=== PATIENT | male | born 1990 | race Caucasian/White ===

== ENCOUNTER 2024-09-04 06:21 | Day surgery (SDC) | payer SELFPAY, OTHER ==
[2024-09-04] VITALS (8 sets, daily range): BP systolic 87–117; BP diastolic 62–71; PULSE 54–70; RESP 15–16; TEMP 36.4–36.7; O2SAT 93–99; BMI 30.1
--- OUTSIDE RECORDS SUMMARY | 2024-09-04 06:28 | XMS RPT_ITS | CCD ---
Author Organization [facility] Care Team Providers Care Thinner Sprayer Name Role Phone Dr. Chino Butts DO Primary Care Provider Dr. Chino Butts DO Referring Provider [phone] Dante MCMANUS, Dr. Eric Baumann Attending Provider Chino Butts Referring Unavailable Chino Butts Primary Care Unavailable Eric Howell Attending Unavailable Chino Butts Primary Care Unavailable Eric Howell Attending Unavailable Problems Problem Classification Problem Date Documented Da te Episodic/Chronic Gastrointestinal hemorrhage (3 sources) Hematochezia; Translations: [Melena] Onset: 08-17-2024 08-17-2024 Episodic Hemorrhoids (1 source) Hemorrhoids; Translations: [Unspecified hemorrhoids] 08-17-2024 Episodic Results Test Name Value Interpretation Reference Range Facil ity Surgery Visit Reporton 08-17 Surgery Visit Report [facility] [address] [place], [place] [address] OFFICE VISIT Date of Service: 08/17/24 MR#: [id number] Acct: [id number] Name: DORON DAY Rep #: [id number] : 1990 Provider: Dr. Eric johansen MD Age/Sex: 33/M Location: [facility] Status: Signed Intake Vital Signs 08/17/24 08:01 Height 5 ft 8 in Weight: 203 lb 4 oz BMI 30.9 BP 119/80 Blood Pressure Location Rt brachial Position Sitting Respiration 18 Pulse 73 Pulse Source Monitor Temp 97.2 F L Temp Source Temporal Pulse Oximetry (%) 99 Oxygen Delivery Method room air Intake Visit Reasons: SELF REFERRED BLOOD IN STOOL Chief Complaint: self referred blood in stool Is patient in pain?: No Allergies No Known Allergies Allergy (Verified 08/17/24 08:02) Medications ???Medication ???Instructions ???Recorded ???Confirmed ???Type No Known/Unobtainable [No Known 03/30/16 08/17/24 History Home Medications] [facility] Medical History (Updated 08/17/24 @ 08:01 by Jenna Angulo LPN) Herbert blood in stool Hemorrhoids Social History (Updated 08/17/24 @ 08:01 by Jenna Angulo LPN) Smoking Status: Never smoker alcohol intake: never substance use type: does not use HPI HPI HPI: The patient is a 33-year-old male who is being seen today for recent episodes of blood per rectum. He states that this blood is typically more dark in color. He has not noticed any significant association other than he has noticed some blood after drinking a lot of energy drinks. No family history of colon polyps or colon cancers. He denies any rectal pain. He has never had a colonoscopy. He ROS General General: Yes weight change and fatigue; No appetite, colon cancer, breast cancer or weakness HEENT HEENT: No difficulty swallowing, eye injury, eye surgery, swollen glands or hoarseness Endo Endocrine: No thyroid disease, diabetes mellitus, thyroid cancer, Hair loss, heat intolerance or cold intolerance Skin Skin: No rash or changing moles Musc Musculoskeletal: No back problems, arthritis, rheumatoid arthritis, gout or joint pain Cardio Cardiovascular: No murmur, pacemaker, heart disease, atrial fibrillation, high blood pressure, heart attack, heart stent, palpitations, shortness of breath with exertion or chest pain Psych Psychiatric: No depression, anxiety or hearing voices Resp Respiratory: No shortness of breath, No sleep apnea, No cough, No COPD, No asthma, No emphysema and No wheezing Gastro Gastrointestinal: No abdominal pain, No nausea or vomiting, No diarrhea, No constipation, Yes blood in stool, No acid reflux, Yes hemorrhoids, No ulcers, No gallbladder problem and No black,tarry stools Tacho Hematologic: No blood thinners, No blood disorders, No bleeding, No anemia and No blood clots Neuro Neurologic: No numbness, No tingling and No weakness Exam Const General: cooperative, healthy appearing and comfortable [facility] Head: normal to inspection Eyes General: appearance normal, both eyes and all related structures Neck Neck: normal visual inspection Resp Effort Inspection: normal respiratory effort Assessment and Plan Assessment and Plan (1) Herbert blood in stool: Status: Acute Plan: The patient is a 33-year-old male with recent episodes of herbert blood in his stool. He was obviously concerned about this. He presents today for further evaluation. I have recommended that we begin with colonoscopy to rule out masses, polyps etc. I suspect this statistically is more likely to be hemorrhoids. For this reason I recommend that he keep himself hydrated and try to increase the fiber in his diet. We also discussed fiber supplement such as Metamucil or Benefiber. I even suggested MiraLAX to help keep his stool soft. We will schedule him for colonoscopy to best evaluate the cause for his blood per rectum. Treatment will be based on scope findings. He is agreeable to this plan. Coding Level of Care Code Off vis,new,level 4 Diagnoses Herbert blood in stool K92.1 08/17/24 0817 Date [facility] Signature: Date (if applicable) CC: Normal [facility] Vital Signs Date Time Vital Sign Value Performing Clinician Gavini josh 08-17-2024 08:01-0400 Body height 172.[address] Chino Butts DO Work Phone: [facility] 08-17-2024 08:01-0400 Body mass index (BMI) [Ratio] 30.9 kg/m2 Dr. Chino Butts DO Work Phone: [facility] 08-17-2024 08:01-0400 Body temperature 97.2 [degF] Dr. Chino Butts DO Work Phone: [facility] 08-17-2024 08:01-0400 Body weight 92.[address] Chino Butts DO Work Phone: [facility] 08-17-2024 08:01-0400 Diastolic blood pressure 80 mm[Hg] Dr. Chino Butts DO Work Phone: [facility] 08-17-2024 08:01-0400 Heart rate 73 /min Dr. Chino Butts DO Work Phone: [facility] 08-17-2024 08:01-0400 Respiratory rate 18 /min Dr. Chino Butts DO Work Phone: [facility] 08-17-2024 08:01-0400 SaO2% (BldA) [Mass fraction] 99 % Dr. Chino Butts DO Work Phone: [facility] 08-17-2024 08:01-0400 Systolic blood pressure 119 mm[Hg] Dr. Chino Butts DO Work Phone: [facility] Encounters Encounter Date Encounter Type Care Provider Facility Start: 09-04-2024 ambulatory Chino Butts Facility:[facility] Start: 08-17-2024 End: 08-17-[address] Eric Howell MD -[facility] Work Phone: Start: 08-17-2024 End: 08-17-[address] Chino Butts DO Work Phone: -[facility] Payers Date Payer Category Payer Self-pay 2024 Unknown [id number] Unknown [id number] Unknown [id number] Social History Date Type Detail Facility Start: [facility] Start: 1990 Sex Assigned At Male [facility] Progress note 08-17-2024 Note Date & Type Note Facility 08-17-2024 Progress note [facility] Progress note 08-17-2024 Note Date & Type Note Facility 08-17-2024 Progress note Note Date/Time August 17, 2024 8:17 am [facility] [address] [place] [address] OFFICE VISIT Date of Service: 08/17/24 MR#: [id number] Acct: [id number] Name: DORON DAY Rep #: [id number] : 1990 Provider: Dr. Colton Howell MD Age/Sex: 33/M Location: [facility] Status: Signed Intake Vital Signs 08/17/24 08:01 Height 5 ft 8 in Weight: 203 lb 4 oz BMI 30.9 BP 119/80 Blood Pressure Location Rt brachial Position Sitting Respiration 18 Pulse 73 Pulse Source Monitor Temp 97.2 F L Temp Source Temporal Pulse Oximetry (%) 99 Oxygen Delivery Method room air Intake Visit Reasons: SELF REFERRED BLOOD IN STOOL Chief Complaint: self referred blood in stool Is patient in pain?: No Allergies No Known Allergies Allergy (Verified 08/17/24 08:02) Medications ?Medication ?Instructions ?Recorded ?Confirmed ?Type No Known/Unobtainable [No Known 7 08/17/24 History Home Medications] PFSH Medical History (Updated 08/17/24 @ 08:01 by Jenna Angulo LPN) Herbert blood in stool Hemorrhoids Social History (Updated 08/17/24 @ 08:01 by Jenna Angulo LPN) Smoking Status: Never smoker alcohol intake: never substance use type: does not use HPI HPI HPI: The patient is a 33-year-old male who is being seen today for recent episodes ofblood per rectum. He states that this blood is typically more dark in color. He has not noticed any significant association other than he has noticed some blood after drinking a lot of energy drinks. No family history of colon polyps or colon cancers. He denies any rectal pain. He has never had a colonoscopy. He ROS General General: Yes weight change and fatigue; No appetite, colon cancer, breast cancer or weakness HEENT HEENT: No difficulty swallowing, eye injury, eye surgery, swollen glands or hoarseness Endo Endocrine: No thyroid disease, diabetes mellitus, thyroid cancer, Hair loss, heat intolerance or cold intolerance Skin Skin: No rash or changing moles Musc Musculoskeletal: No back problems, arthritis, rheumatoid arthritis, gout or joint pain Cardio Cardiovascular: No murmur, pacemaker, heart disease, atrial fibrillation, high blood pressure, heart attack, heart stent, palpitations, shortness of breath with exertion or chest pain Psych Psychiatric: No depression, anxiety or hearing voices Resp Respiratory: No shortness of breath, No sleep apnea, No cough, No COPD, No asthma, No emphysema and No wheezing Gastro Gastrointestinal: No abdominal pain, No nausea or vomiting, No diarrhea, No constipation, Yes blood in stool, No acid reflux, Yes hemorrhoids, No ulcers, Nogallbladder problem and No black,tarry stools Tacho Hematologic: No blood thinners, No blood disorders, No bleeding, No anemia and No blood clots Neuro Neurologic: No numbness, No tingling and No weakness Exam Const General: cooperative, healthy appearing and comfortable HENAL Head: normal to inspection Eyes General: appearance normal, both eyes and all related structures Neck Neck: normal visual inspection Resp Effort & Inspection: normal respiratory effort Assessment and Plan Assessment and Plan (1) Herbert blood in stool: Status: Acute Plan: The patient is a 33-year-old male with recent episodes of herbert blood in his stool. He was obviously concerned about this. He presents today for further evaluation. I have recommended that we begin with colonoscopy to rule out masses, polyps etc. I suspect this statistically is more likely to be hemorrhoids. For this reason I recommend that he keep himself hydrated and try to increase the fiber in his diet. We also discussed fiber supplement such as Metamucil or Benefiber. I even suggested MiraLAX to help keep his stool soft. We will schedule him for colonoscopy to best evaluate the cause for his blood per rectum. Treatment will be based on scope findings. He is agreeable to thisplan. Coding Level of Care Code Off vis,new,level 4 Diagnoses Herbert blood in stool K92.1 08/17/24 0817 <Electronically signed by Eric alexander MD> Date _ Eric Howell MD Cosigner Signature: Date (if applicable) CC: ~ [facility] Work Phone: Evaluation note Note Date & Type Note Facility Evaluation note Diagnosis Onset Date Resolution Herbert blood in stool acute August 17, 2024 7:55am [facility] [employer] [facility] Work Phone: Reason for referral (narrative) Note Date & Type Note Facility Reason for referral (narrative) No reason for referral information available [facility] Work Phone: Chief Complaint and Reason for Visit Chief Complaint Admit Date SELF REFERRED BLOOD IN STOOL August 17, 2024 7:55am Reason for Visit Admit Date Herbert blood in stool August 17, 2024 7:5 5am Summary Purpose Family History No Family History Records Found Advance Directives No Advanced Directives Records Found Additional Source Comments Care Teams (unrecognized sec tion and content) Team Status: Active Member Role/Relationship Status Dates Dr. Chino Butts DO Primary Care Provider Active Team Status: Inactive Member Role/Relationship Status Dates Dr. Chino Butts DO Primary Care Provider Active Start: August 17, 2024 End: August 17, 2024 Dr. Chino Butts DO Referring Provider Active S tart: August 17, 2024 End: August 17, 2024 Dr. Eric Howell MD Attending Provider Active Start: August 17, 2024 End: August 17, 2024 Goals (unrecognized section and content) Goals may be documented in a n alternate section (unrecognized sect ion and content) No Status Records Found INFORMATION SOURCE (unrecogn ized section and content) DATE CREATED AUTHOR 09/04/2024 [facility] FOR RECORDS PERTAINING TO PATIENTS WHO ARE OR HAVE BEEN ENROLLED IN A CHEMICAL DEPENDENCY/SUBSTANCEABUSE PROGRAM, SOME INFORMATION MAY BE OMITTED. This clinical summary was aggregated from multiple sources. Caution should be exercised in using it in the provision of clinical care. This summary normalizes information from multiple sources, and as a consequence, information in this document may materially change the coding, format and clinical context of patient data. In addition, data may be omitted in some cases. CLINICAL DECISIONS SHOULD BE BASED ON THE PRIMARY CLINICAL RECORDS. [facility] [employer] [facility]. provides no warranty or guarantee of the accuracy or completeness of information in this document.
[2024-09-04] MEDS: Lactated Ringers 1,000 ML 15 ML IV (06:54)
--- NOTE | 2024-09-04 07:14 | PCM.PRE.AN2 ---
ASA Classification* ASA Classification ASA Classification: 1 Assessment & Plan Anesthesia* Anesthesia Assessment Anesthesia Assessment: Discussed sedation and/or anesthesia options, risks, benefits, and alternatives with patient/parents/legal guardian/POA. Questions invited. The patient/parents/legal guardian/POA seems to understand and agrees to proceed with anesthesia plan. Reviewed the physical assessment, medical history, allergy history and patient home medications list prior to surgery/procedure/anesthetic and documented any changes. Performed airway and anesthesia risk assessments. Anesthesia Type Anesthesia Type: MAC History Source History Obtained from:: Patient and Chart Anesthesia Focused Assessment* Temperature: 98.1 F Pulse Rate: 70 Blood Pressure: 117/69 Respiratory Rate: 15 Pulse Ox: 99 Oxygen Delivery Method: Room Air Airway Assessment Mouth opens: >3 cm Mallampati Score: II Teeth Condition: Intact Neck Range of motion (ROM): Full ROM Labs Anesthesia Preop lab: CBC CHEMISTRY COAG Pre-Assessment Diagnosis/Proposed Procedure Planned Operative Procedure(s): COLONOSCOPY Anesthesia History Anesthesia History - paper grader: Anesthesia History - paper grader Hx Hospitalization No 08/31/24 12:01 Any Problems With Anesthesia No 08/31/24 12:01 Cholinesterase deficiency No 08/31/24 12:01 You/Your Family Experience No 08/31/24 12:01 fever (hyperthermia) with Relationship Recent Exposure to Contagious Yes 09/04/24 06:45 Disease Does patient have nerve No 08/31/24 12:01 stimulator Patient instructed to have device shut off --Does patient have Pacemaker No 09/04/24 06:47 or ICD? When Was Last Pacemaker Check QUESTION #4 FULL TEXT: You/Your Family Experience fever (hyperthermia) with Anesthesia Last Oral Intake Last Oral intake: Last Oral Intake NPO since 22:30 09/04/24 06:47 Meds taken in AM with sips of No 09/04/24 06:47 water? Meds patient instructed to take am of surgery PONV PONV - paper grader: PONV - paper grader Female No 08/31/24 12:01 HX of Motion Sickness No 08/31/24 12:01 HX of N/V After Surgery No 08/31/24 12:01 Non-Smoker No 08/31/24 12:01 Duration of Surgery greater No 08/31/24 12:01 than 60 minutes Number of Risk Factors PONV Score Height & Weight Height & Weight: Anesthesia: Height & Weight Height 5 ft 8 in 09/04/24 06:47 Weight: 89.811 kg 09/04/24 06:47 Body Mass Index (BMI) 30.1 09/04/24 06:47 Respiratory Assessment Respiratory Assessment - paper grader: Respiratory Tract Infection Hx - paper grader Hx Respiratory Tract Infection No 08/31/24 12:01 STOP Sleep Apnea STOP Sleep Apnea - paper grader: STOP Sleep Apnea - paper grader Hx Hypertension No 08/31/24 12:01 Hx Sleep Apnea No 08/31/24 12:01 CPAP BIPAP Do you snore loudly (louder No 08/31/24 12:01 than talking or can be heard Do you often feel tired/ No 08/31/24 12:01 fatigued/ sleepy during daytime? Has anyone observed you stop No 08/31/24 12:01 breathing during sleep? STOP Results Negative 08/31/24 12:01 QUESTION #5 FULL TEXT : Do you snore loudly (louder than talking or can be heard through closed doors)? Tobacco Use History Tobacco Use History - paper grader: Tobacco Use History - paper grader Tobacco Use Smoking Status Current some day smoker 08/31/24 12:01 Hx Tobacco Use Yes 08/31/24 12:01 Years Smoking Packs Smoked per Day Smoking Cessation Date was within the last 15 years Hx Smoking Cessation Date Hx Smoking Cessation Counseling Hematologic Medial History Hematologic Hx - paper grader: Hematologic Medical Hx - magazine keeper Hx of Blood Transfusion No 08/31/24 12:01 Hx of Transfusion in last 3 No 08/31/24 12:01 Months Date of Last Transfusion (if within last 3 months) Ever experience any problems No 08/31/24 12:01 with transfusion(s)? Specify any problems Hx of Preganancy in last 3 N/A 08/31/24 12:01 Months Nurse Filling Out Transfusion [id number] 08/31/24 12:01 & Questions: Date: 08/31/24 08/31/24 12:01 Time: 12:06 08/31/24 12:01 Patient unable to answer at this time (ie. confused, unrespo /Reproduction History /Reproductive History - paper grader: /Reproductive Hx- paper grader Hx Now Gestational Age (in weeks): EDC: Hx Hx Para Hx Section SAB Active Medications Active Medications: Current Medications Generic Name Dose Route Start Last Admin Trade Name David PRN Reason Stop Dose Admin Lactated Ringer's 1,000 mls @ 15 mls/hr 09/04/24 06:45 09/04/24 06:54 IV 15 mls/hr .Q48H CHARLES Administration PFSH Medical History (Updated 08/31/24 @ 12:08 by Chris Burns) Injury of back Smoker Loc blood in stool Hemorrhoids Home Medications ?Medication ?Instructions ?Recorded ?Last Taken ?Type No Known/Unobtainable [No Known 03/30/16 Unknown History Home Medications] Allergy/AdvReac Type Severity Reaction Status Date / Time No Known Allergies Allergy Verified 09/04/24 06:45 Social History (Updated 08/17/24 @ 08:01 by Jenna Angulo LPN) Smoking Status: Current some day smoker tobacco type: cigarettes alcohol intake: never substance use type: does not use Review of Systems (Anesthesia) ROS Narrative System reviewed and no additional complaints, except as documented.
--- NOTE | 2024-09-04 07:30 | HP.PCM_ITS ---
HPI - General General Date of Admission: 09/04/24 Date of Service: 09/04/24 Chief Complaint: blood per rectum HPI Narrative The patient is a 33-year-old male who is being seen today for recent episodes of blood per rectum. He states that this blood is typically more dark in color. He has not noticed any significant association other than he has noticed some blood after drinking a lot of energy drinks. No family history of colon polyps or colon cancers. He denies any rectal pain. He has never had a colonoscopy. [facility] Medical History (Updated 08/31/24 @ 12:08 by Chris Burns) Injury of back Smoker Loc blood in stool Hemorrhoids Home Medications ?Medication ?Instructions ?Recorded ?Last Taken ?Type No Known/Unobtainable [No Known 7 Unknown History Home Medications] Allergy/AdvReac Type Severity Reaction Status Date / Time No Known Allergies Allergy Verified 09/04/24 06:45 Social History (Updated 08/17/24 @ 08:01 by Jenna Angulo LPN) Smoking Status: Current some day smoker tobacco type: cigarettes alcohol intake: never substance use type: does not use Vital Signs Vital Signs Vital Signs: 09/04/24 06:45 09/04/24 06:47 09/04/24 07:18 Temperature 98.1 F 98.1 F Temperature Source Temporal Pulse Rate 70 70 Respiratory Rate 15 15 Respiratory Pattern Normal Blood Pressure 117/69 117/69 Blood Pressure Mean 85 Blood Pressure Source Monitor Blood Pressure Position Semi-Fowlers Blood Pressure Location Right Arm Pulse Ox 99 99 Oxygen Delivery Method Room Air Room Air Weight Weight: 198 lb Body Mass Index (BMI) 30.1 Physical Exam Const alert, oriented x3 and no apparent distress Assessment & Plan Assessment/Plan (1) Loc blood in stool: PLAN: Plan colonoscopy today
--- NOTE | 2024-09-04 07:57 | PCM.POST.ANE ---
Anesthesia: Postop Eval I Current Vital Signs Temperature: 97.7 F Pulse Rate: 59 Blood Pressure: 87/71 Respiratory Rate: 16 Pulse Ox: 95 Oxygen Delivery Method: Room Air Assessment Airway patent: Yes Spontaneous unlabored respirations: Yes Mental status: Awake and Calm nausea: No Vomiting: No Anesthesia Complication: No Fluid Hydration Crystalloid volume administer (ml): 300 Total IV fluid infused: 300 Progress Note Anesthesia document: Postop Eval 1 completed: Yes
--- NOTE | 2024-09-04 08:00 | OP.PROVAT_ITS ---
09/04/2024 Chino Butts Re : Colonoscopy procedure for Samuel Medina Dear Beckie This procedure was performed on Wednesday, September 04, 2024. My impressions and recommendations are as follows: Impressions : - Internal hemorrhoids. - The examination was otherwise normal on direct and retroflexion views. - No specimens collected. Recommendations : - Discharge patient to home (ambulatory). - High fiber diet indefinitely. - Repeat colonoscopy in 10 years for screening purposes. - Continue present medications. My findings are described in the full procedure note, which is enclosed. If I can be of further assistance, please feel free to contact me at . Sincerely, Eric Howell MD 09/04/2024 7:59:56 AM This report has been signed electronically.
--- NOTE | 2024-09-04 08:00 | OP.COLON_ITS ---
Patient Name: Samuel Medina Procedure Date: 09/04/2024 7:26 AM Date of : 1990 Age: 33 Procedure: Colonoscopy Indications: Rectal bleeding Providers: Eric Howell MD Medicines: Monitored Anesthesia Care Patient Profile: Refer to note in patient chart for documentation of history and physical. Last Colonoscopy: none. The patient's first colonoscopy is today. Complications: No immediate complications. Estimated blood loss: None. Procedure: Pre-Anesthesia Assessment: - Prior to the procedure, a History and Physical was performed, and patient medications and allergies were reviewed. The patient's tolerance of previous anesthesia was also reviewed. The risks and benefits of the procedure and the sedation options and risks were discussed with the patient. All questions were answered, and informed consent was obtained. Prior Anticoagulants: The patient has taken no anticoagulant or antiplatelet agents. ASA Grade Assessment: I - A normal, healthy patient. After reviewing the risks and benefits, the patient was deemed in satisfactory condition to undergo the procedure. After I obtained informed consent, the scope was passed under direct vision. Throughout the procedure, the patient's blood pressure, pulse, and oxygen saturations were monitored continuously. The adult colonoscope was introduced through the anus and advanced to the cecum, identified by appendiceal orifice and ileocecal valve. The ileocecal valve, appendiceal orifice, and rectum were photographed. The entire colon was well visualized. The colonoscopy was performed without difficulty. The patient tolerated the procedure well. The quality of the bowel preparation was good. Moderate Sedation: See the other procedure note for documentation of moderate sedation with intraservice time. Scope In: 7:38:19 AM Scope Withdrawal Time 0 hours 5 minutes 42 seconds Scope Out: 7:48:31 AM Total Procedure Duration Time 0 hours 10 minutes 12 seconds Findings: The perianal and digital rectal examinations were normal. Internal hemorrhoids were found during retroflexion. The hemorrhoids were moderate. The exam was otherwise without abnormality on direct and retroflexion views. Impression: - Internal hemorrhoids. - The examination was otherwise normal on direct and retroflexion views. - No specimens collected. Recommendation: - Discharge patient to home (ambulatory). - High fiber diet indefinitely. - Repeat colonoscopy in 10 years for screening purposes. - Continue present medications. Procedure Code(s): --- Professional --- 32304, Colonoscopy, flexible; diagnostic, including collection of specimen(s) by brushing or washing, when performed (separate procedure) Diagnosis Code(s): --- Professional --- K62.5, Hemorrhage of anus and rectum K64.8, Other hemorrhoids CPT copyright 2021 [employer]. All rights reserved. The codes documented in this report are preliminary and upon resident care supervisor review may be revised to meet current compliance requirements. Eric Howell MD 09/04/2024 7:59:56 AM This report has been signed electronically. Number of Addenda: 0 Note Initiated On: 09/04/2024 7:26 AM
--- NOTE | 2024-09-04 13:37 | POSTOPAN2_ITS ---
Anesthesia Postop Eval I Sum Postop Eval Completion status Anesthesia document: Postop Eval 1 completed: Yes Anesthesia Postop Eval I Summary Anesthesia Postop Eval I Summary: Anesthesia Postop Eval I: Assessment Summary Airway patent Yes 09/04/24 07:58 [email or web address] Spontaneous unlabored Yes 09/04/24 07:58 SOUND [email or web address] respirations Mental status Awake,Calm 09/04/24 07:58 SOUND [email or web address] nausea No 09/04/24 07:58 SOUND [email or web address] Vomiting No 09/04/24 07:58 SOUND [email or web address] Anesthesia Postop Eval I: Fluid Summary Crystalloid volume administer 300 09/04/24 07:58 SOUND [email or web address] (ml) Colloids volume administered ( ml) Blood Product volume administered (ml) Total IV fluid infused 300 09/04/24 07:58 SOUND [email or web address] Anesthesia Postop Eval I: Summary Notes Anesthesia Complication No 09/04/24 07:58 SOUND [email or web address] Anesthesia Complication Comment: Post-operative progress note Anesthesia: Postop Eval II Evaluation Mental status: Awake and Calm Pain Level: 0 nausea: No Vomiting: No Complications Anesthesia Complication: No
--- NOTE | 2024-09-04 13:37 | PCM.POSTANE2 ---
Anesthesia Postop Eval I Sum Postop Eval Completion status Anesthesia document: Postop Eval 1 completed: Yes Anesthesia Postop Eval I Summary Anesthesia Postop Eval I Summary: Anesthesia Postop Eval I: Assessment Summary Airway patent Yes 09/04/24 07:58 [email or web address] Spontaneous unlabored Yes 09/04/24 07:58 [email or web address] respirations Mental status Awake,Calm 09/04/24 07:58 [email or web address] nausea No 09/04/24 07:58 [email or web address] Vomiting No 09/04/24 07:58 [email or web address] Anesthesia Postop Eval I: Fluid Summary Crystalloid volume administer 300 09/04/24 07:58 [email or web address] (ml) Colloids volume administered ( ml) Blood Product volume administered (ml) Total IV fluid infused 300 09/04/24 07:58 [email or web address] Anesthesia Postop Eval I: Summary Notes Anesthesia Complication No 09/04/24 07:58 [email or web address] Anesthesia Complication Comment: Post-operative progress note Anesthesia: Postop Eval II Evaluation Mental status: Awake and Calm Pain Level: 0 nausea: No Vomiting: No Complications Anesthesia Complication: No
== END 2024-09-04 08:43 | disposition home or self-care (01) ==
LOC: EN 06:24 → AC 06:26
PROVIDERS: PCP Family Medicine; Referring Provider Surgery; Visit Provider Surgery
PROC: 0DJD8ZZ Inspection of Lower Intestinal Tract, Via Natural or Artificial Opening Endoscopic (ICD-10-PCS; CPT 45378; principal; 2024-09-04 07:25)
DX: K62.5 Hemorrhage of anus and rectum (principal); K64.8 Other hemorrhoids; F17.210 Nicotine dependence, cigarettes, uncomplicated
CPT/HCPCS: 45378; J2405